=== PATIENT | female | born 1995 | race Caucasian/White ===

== ENCOUNTER 2016-06-19 18:58 | Emergency (ER) | payer OTHER ==
[~2016-06-19] VITALS: Ht 154.9 cm; Wt 127.0 kg
[~2016-06-19 18:58] MED LIST: PERM5CRE TOPICAL
[2016-06-19 19:00] VITALS: BP 101/63; PULSE 90; RESP 16; TEMP 97.7; O2SAT 98
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
[2016-06-19] MEDS ORDERED: ACETAMINOPHEN/HYDROcodone 325 MG/5 MG TAB PO ONE (20:00)
[2016-06-19] MEDS ORDERED: KETOROLAC TROMETHAMINE 60 MG/2 ML (IM) VIAL IM ONE (20:00)
== END 2016-06-19 20:06 | disposition home or self-care (01) ==
LOC: NEPB 18:58
DX: S00.93XA Contusion of unspecified part of head, initial encounter (principal); I10 Essential (primary) hypertension; W50.0XXA Accidental hit or strike by another person, initial encounter; Y92.89 Other specified places as the place of occurrence of the external cause; Y99.0 Civilian activity done for income or pay
CPT/HCPCS: 99283; J1885

== ENCOUNTER 2016-06-29 20:56 | Emergency (ER) | payer SELFPAY ==
[~2016-06-29] VITALS: Ht 157.5 cm; Wt 127.0 kg
[2016-06-29 21:00] VITALS: BP 137/76; PULSE 94; RESP 18; TEMP 98.1; O2SAT 96
[2016-06-29] MEDS ORDERED: MUPI2%T TOPICAL (21:14)
[2016-06-29] MEDS ORDERED: BACT800T5 PO (21:14)
--- NOTE | 2016-06-29 21:18 | PD ---
HPI Chief Complaint: Skin Problem Time Seen by Provider: 21:15 Travel History International Travel<30 days: No Contact w/Intl Traveler<30days: No Traveled to known affect area: No History of Present Illness HPI 21-year-old female presents to emergency Department with complaints of a painful rash to her lower abdomen and groin over the last 2 days. She states that these started off as small round tender areas which become more painful as time goes on. She states that she did a lot of walking at [employer] today which seemed to have exacerbated. She states that she, rubbing and sweating admitted worse. History of similar rash in the past. PFSH Past Medical History Cardiovascular Problems: Yes (HTN) Tetanus Vaccination: < 5 Years ?: Not Social History Alcohol Use: Yes Tobacco Use: No Substance Use: No Allergies-Medications (Allergen,Severity, Reaction): Coded Allergies: No Known Allergies (Unverified , 06/29/16) Reported Meds & Prescriptions Reported Meds & Active Scripts Active No Active Prescriptions or Reported Medications Review of Systems Except as stated in HPI: all other systems reviewed are Neg Physical Exam Narrative GENERAL: This is a morbidly obese, well-developed patient, in no apparent distress. SKIN: Patient has multiple follicular macular lesions on the lower abdomen in the lower pain line and inner thighs. There is no fluctuance or pointing., ecchymoses or lesions. Warm and dry. HEAD: Atraumatic. Normocephalic. EYES: PERRL, EOMI, no discharge or injection. No scleral icterus. EARS: Clear NOSE: Nasal turbinates appear normal. THROAT: Mucosa pink and moist. Airway patent. NECK: Trachea midline. supple, moves head freely. LUNGS: Clear to auscultation. CV: Regular in rhythm. ABDOMEN: Soft nontender. Large pannus EXT: No clubbing cyanosis or edema. Data Data Last Documented VS Vital Signs Date Time Temp Pulse Resp B/P Pulse Ox O2 Delivery O2 Flow Rate FiO2 06/29/16 21:00 98.1 94 18 137/76 96 MDM Medical Decision Making Medical Screen Exam Complete: Yes Emergency Medical Condition: Yes Medical Record Reviewed: Yes Differential Diagnosis MDM: High Differential diagnoses: Abscess, folliculitis, cellulitis, lymphangitis, abrasion, contact dermatitis Narrative Course Patient's given Bactrim DS by mouth. This is folliculitis Diagnosis Primary Impression: Folliculitis Patient Instructions: General Instructions Additional Instructions: Rest. Elevation. keep clean and dry. Warm compresses Daily wound care with soap, water and Neosporin. Three Advil every 6 hours. Bactrim DS and Bactroban Follow-up with a primary care doctor in one week. Return to the ER for any problems. Med/Other Pt SpecificInfo: Prescription(s) given Scripts Mupirocin Topical (Bactroban Topical)2 % Cream1 Applic TOPICAL TID #1 TUBE Ref 0 Prov:Aubrey Benson MD 06/29/16 Sulfamethoxazole-Trimethoprim (Bactrim DS)800-160 Mg Tab1 Tab PO BID #14 TAB Prov:Aubrey Benson MD 06/29/16 Disposition: 01 DISCHARGE HOME Condition: Stable Mauri Henriquez Jun 29, 2016 21:18
== END 2016-06-29 21:24 | disposition home or self-care (01) ==
LOC: NEPB 20:56
DX: L73.9 Follicular disorder, unspecified (principal)
CPT/HCPCS: 99282